=== PATIENT | male | born 1975 | race Caucasian/White ===

== ENCOUNTER 2018-11-02 15:50 | Observation (INO) | payer OTHER, SELFPAY ==
[2018-11-02] VITALS (10 sets, daily range): BP systolic 104–155; BP diastolic 63–97; PULSE 58–74; RESP 16–18; TEMP 36.6–37.2; O2SAT 96–99; BMI 30.7; BMI 31.1
--- NOTE | 2018-11-02 16:12 | EKG12_ITS ---
Test Reason : CP Blood Pressure : / mmHG Vent. Rate : 062 BPM Atrial Rate : 062 BPM P-R Int : 172 ms QRS Dur : 094 ms QT Int : 386 ms P-R-T Axes : 026 060 007 degrees QTc Int : 391 ms Normal sinus rhythm Normal ECG Confirmed by KANE PERALES, OBED ([id number]), features editor LUIS MANUEL MARROQUIN ([id number]) on 11/07/2018 1:03:07 PM Referred By: Sam Larsen Confirmed By:OBED MIDDLETON MD
--- NOTE | 2018-11-02 16:15 | RAD_ITS ---
STUDY: X-RAY CHEST REASON FOR EXAM: Male, 43 years old. Chest pain TECHNIQUE: Portable upright chest COMPARISON: 02/03/2010 FINDINGS: The lungs are clear and expanded. Normal cardiomediastinal silhouette, wilfred and pleural margins. No acute osseous or upper abdominal process. RAD/Chest 1 View (Portable) IMPRESSION: No acute cardiopulmonary process. Electronically Signed: Miguel Linares MD at 16:59 EST Tel , Service support ,
[2018-11-02 16:38] LABS: Absolute Lymphocyte Count 1.45 X10^3/ul (0.83-4.51); Absolute Neutrophil Count 2.6 X10^3/uL (2.0-7.7); Basophil# 0.06 X10^3/uL; Basophil% 1.3 % (0-1); Eosinophil# 0.13 X10^3/uL; Eosinophils% 2.8 % (0-5); Hematocrit 47.6 % (40-54); Hemoglobin 16.2 g/dl (13.0-16.5); Lymphocyte # 1.45 X10^3/ul (4.0); Lymphocyte % 30.8 % (19-41); Mean Corpuscular Hgb 30.6 pg (27.0-32.0); Mean Corpuscular Volume 89.8 fL (80-94); Mean Platelet Vol. 10.3 fl (6.2-12.0); Monocyte# 0.49 X10^3/uL; Monocyte% 10.4 % (0-10); Neutrophil # 2.57 X10^3/uL (2.7-7.7); Neutrophil % 54.5 % (47-70); POSITIVE COUNT NO; POSITIVE DIFFERENTIAL NO; POSITIVE MORPHOLOGY NO; Platelet Count 218 K/mm3 (150-450); RBC Distribution Width CV 12.6 % (11.6-14.6); RBC Distribution Width SD 41.2 fl (35.1-43.9); White Blood Count 4.7 K/mm3 (4.4-11.0)
--- NOTE | 2018-11-02 16:50 | ED.VISSUMM ---
- ER Visit Summary Date of Service: 11/02/18 Chief Complaint: [Chest pain] History of Present Illness: The patient is a 43 M [presents to the emergency department complaint of chest discomfort that started initially last night. Patient states pain initially was intermittent. Patient describes a pressure/tightness in his left chest and underneath his left armpit. Patient states the pain would radiate down his left arm and behind his scapula. Patient denies any shortness of breath or diaphoresis. Patient states that when he woke up this morning he had some discomfort and went to work and discomfort continued. Rated the pain a 2 or 3 out of 10. Patient is never had symptoms like this before. Patient does have a history of high cholesterol. No family history of heart disease. Patient is not a smoker. He denies recent travel or surgery.] Physical Examination: [HEENT-PERRLA, EOMI. Cranial nerves II through XII grossly intact. TMs clear. Mucous membranes moist. No adenopathy. Cardiovascular-regular rate and rhythm without murmur or ectopy Lungs-clear to auscultation, chest wall stable without crepitus or subcu emphysema Abdomen-normoactive bowel sounds, soft, nontender, no rebound or rigidity, no peritoneal signs. Extremities-intact ?4, normal range of motion, normal pulses, atraumatic] Test Results: [EKG obtained on arrival shows sinus rhythm with a ventricular rate of 62 bpm with some nonspecific ST changes noted with the flipped T wave in lead III and flattened T wave in aVF there is no old EKGs available for comparison. CBC with differential obtained showed a white count of 4.7, hemoglobin 16, hematocrit 48, platelets 218. Chemistries unremarkable. Troponin is less than 0.015. Chest x-ray showed nothing acute.] Emergency Department Course and Treatment: [Was ordered aspirin and was ordered nitroglycerin] Treatment Plan: [Admit] Disposition: [Admit for further workup and evaluation] Impression: [Chest pain-rule out acute coronary syndrome] This note was generated with [employer] dictation software. It may contain incorrect words, spelling, and punctuation that were not noted in review of the chart prior to signing ED Disposition - Plan for ED Patient: Chief Complaint: Chest Pain Referrals: Anna Wu MD [Primary Care Provider] -
[2018-11-02 16:55] LABS: Anion Gap 6 (5-15); BUN 19 mg/dL (7-18); BUN/Creat Ratio 17.9 RATIO (10-20); Calcium,Total 9.3 mg/dL (8.5-10.1); Chloride 103 mmol/L (98-107); Creatinine, Serum 1.06 mg/dL (0.70-1.30); EST Glomerular Filtration Rate 81 mL/min (>60); Est Glom Filt Rate - Afr Amer 98 mL/min (>60); Estimated Creatinine Clearance 89.86 ml/min; Glucose 107 mg/dL (74-106); Potassium 3.8 mmol/L (3.5-5.1); Sodium Level 138 mmol/L (136-145)
[2018-11-02] MEDS: 0.9% Normal Saline 1,000 ML 150 ML IV (17:05)
[2018-11-02] MEDS: Aspirin 81 MG TAB.CHEW 324 MG PO (17:06)
--- NOTE | 2018-11-02 17:31 | PCM.HP.STD ---
History of Present Illness Date of Admission: 11/02/18 Chief Complaint: Chest pain. The patient is a 43 year old M without significant past medical history presented to the emergency room because of chest pain. Her symptoms started yesterday evening when he was standing at the [place], started having retrosternal chest pain, burning aching pain, 3 out of 10 severity, constant since yesterday evening, radiates to his left shoulder blade, no associated symptoms and without aggravating or relieving factors. He mentioned that the pain continued this morning when he went to work and got worse this afternoon. He denied associated shortness of breath, palpitation, dizziness, lightheadedness, syncope or presyncope. He denied nausea, vomiting or heartburn. He denied family history of premature CAD. In the emergency department, his vital signs were stable. His routine blood work was unremarkable. EKG revealed normal sinus rhythm, normal QRS, normal QTC and without evidence of acute ischemic changes. His troponin was negative. Chest x-ray showed no acute findings. He is being admitted for chest pain for evaluation. Past Medical History Allergies No Known Allergies Allergy (Verified 11/02/18 15:52) Home Medications: Ambulatory Orders Medication Instructions Recorded Omeprazole Magnesium [Prilosec Otc] 20 mg PO DAILY 11/02/18 Surgical History: - - Surgery for carpal tunnel syndrome. Psychiatric History: No pertinent psych hx Lives: Spouse/ Significant Other Smoking Status: Former smoker Alcohol: Heavy - He drinks wine almost daily. Drugs: None - *Family History Maternal History Items: Hypertension, - - No family history of premature CAD. Paternal History Items: No pertinent history Review of Systems Constitutional: Denies: Anorexia, Chills, Fever, Weakness Eyes: Denies: Blurred vision, Double vision, Drainage, Redness HEENT: Denies: Difficulty Hearing, Ear Pain, Eye Pain, Nasal Congestion, Sore Throat Cardiovascular: Reports: Chest Pain, Chest Pressure. Denies: Heaviness, Light Headedness, Palpitations, Syncope Respiratory: Denies: Cough, Pleuritic Pain, Shortness of Breath, Sputum production, Wheezing Gastrointestinal: Denies: Abdominal Pain, Constipation, Diarrhea, Dyspepsia, Nausea, Vomiting Genitourinary: Denies: Dysuria, Frequency, Hematuria Musculoskeletal: Denies: Arm Pain, Back Pain, Foot Pain Skin: Denies: Dryness, Rash Neurological: Denies: Balance problems, Double vision, Change in Speech, Slurred speech, Confusion, Headaches, Incoordination, Numbness Psychiatric: Denies: Anxiety, Depression Endocrine: Denies: Change in Body Habitus, Polydipsia VTE Information - Inpt Only VTE Present on Admission: No VTE Mechan Device Prophylaxis: None VTE Pharm Prophylaxis ordered?: No - Physical Exam General: Alert, Oriented x3, Cooperative, No apparent distress HEENT: Atraumatic, PERRLA, EOMI, Normocephalic Oral: Moist Mucosa, No Gingival or Mucosal Lesions/ Ulcerations Neck: Supple, No JVD, Negative Carotid Bruits, Trachea Midline, Thyroid Normal Size and Texture Lungs: Clear to auscultation, Normal air movement, No rhonchi, No wheeze, No rales Cardiovascular: Regular rate, Regular Rhythm, Normal S1, Normal S2, No murmurs Abdomen: Bowel Sounds Present, Soft, Non Tender, Non-Distended, No Hepato-splenomegaly Extremities: No clubbing, No cyanosis, No edema Skin: No rashes, No breakdown Lymphatic: No Cervical, Supraclavicular, or Inguinal Adenopathy Neurological: Cranial nerves II-XII grossly intact, Motor Exam 5/5 strength throughout Psych/Mental Status: Normal Affect, Appropriate, Alert and oriented to time, place, person, mood and affect Vital Signs Temp Pulse Resp BP Pulse Ox 98.9 F 74 17 123/63 H 97 11/02/18 15:51 11/02/18 17:14 11/02/18 17:10 11/02/18 17:14 11/02/18 17:10 Oxygen Flow Rate (L/min) 2 Oxygen Delivery Method Nasal Cannula Weight: 208 lb Body Mass Index (BMI) 30.7 Laboratory Tests Past 24 Hrs 11/02/18 11/02/18 16:05 16:12 WBC 4.7 RBC 5.30 Hgb 16.2 Hct 47.6 MCV 89.8 MCH 30.6 MCHC 34.0 RDW 12.6 RDW Differential 41.2 Plt Count 218 MPV 10.3 Immature Gran % (Auto) 0.200 Neut % (Auto) 54.5 Lymph % (Auto) 30.8 [place] % (Auto) 10.4 H Eos % (Auto) 2.8 Baso % (Auto) 1.3 H Absolute Neuts (auto) 2.6 Absolute Lymphs (auto) 1.45 Total Counted Not Reportable Sodium 138 Potassium 3.8 Chloride 103 Carbon Dioxide 29.0 Anion Gap 6 BUN 19 H Creatinine 1.06 Estim Creat Clear Calc 89.86 Est GFR (MDRD) Af Amer 98 Est GFR (MDRD) Non-Af 81 BUN/Creatinine Ratio 17.9 Glucose 107 H Calcium 9.3 Troponin I < 0.015 Clinical Impression(s) from Imaging Studies Chest X-Ray 11/02/18 16:15 IMPRESSION: No acute cardiopulmonary process. Electronically Signed: Miguel Linares MD at 16:59 EST Tel , Service support , Assessment/Plan This is a 43 years old male patient presented to the emergency room because of chest pain and he is being admitted for evaluation. #1 chest pain: With no significant past medical history. No family history of premature CAD. Patient is an ex-smoker. Initial EKG revealed no acute ischemic changes. Troponin is negative. Chest x-ray showed no acute findings. Plan: Admit to PCU for observation, cardiac monitoring, serial cardiac enzymes, repeat EKG tomorrow morning, Tylenol as needed, IV antiemetics as needed, nitroglycerin as needed for chest pain, nuclear stress test tomorrow morning if cardiac enzymes are negative. #2 DVT prophylaxis: Low-risk patient, no prophylaxis indicated. This note was generated with [employer] software. It may contain incorrect words, spelling, and punctuation that were not noted in checking the note before signing. Code Visit OBSV E&M: 98128 Initial observation care L2
--- NOTE | 2018-11-02 17:35 | HP.PCM_ITS ---
History of Present Illness Date of Admission: 11/02/18 Chief Complaint: Chest pain. The patient is a 43 year old M without significant past medical history presented to the emergency room because of chest pain. Her symptoms started yesterday evening when he was standing at [place], started having retrosternal chest pain, burning aching pain, 3 out of 10 severity, constant since yesterday evening, radiates to his left shoulder blade, no associated symptoms and without aggravating or relieving factors. He mentioned that the pain continued this morning when he went to work and got worse this afternoon. He denied associated shortness of breath, palpitation, dizziness, lightheadedness, syncope or presy ncope. He denied nausea, vomiting or heartburn. He denied family history of premature CAD. In the emergency department, his vital signs were stable. His routine blood work was unremarkable. EKG revealed normal sinus rhythm, normal QRS, normal QTC and without evidence of acute ischemic changes. His troponin was negative. Chest x-ray showed no acute findings. He is being admitted for chest pain for evaluation. Past Medical History Allergies No Known Allergies Allergy (Verified 11/02/18 15:52) Home Medications: Ambulatory Orders Medication Instructions Recorded Omeprazole Magnesium [Prilosec Otc] 20 mg PO DAILY 11/02/18 Surgical History: - - Surgery for carpal tunnel syndrome. Psychiatric History: No pertinent psych hx Lives: Spouse/ Significant Other Smoking Status: Former smoker Alcohol: Heavy - He drinks wine almost daily. Drugs: None - *Family History Maternal History Items: Hypertension, - - No family history of premature CAD. Paternal History Items: No pertinent history Review of Systems Constitutional: Denies: Anorexia, Chills, Fever, Weakness Eyes: Denies: Blurred vision, Double vision, Drainage, Redness HEENT: Denies: Difficulty Hearing, Ear Pain, Eye Pain, Nasal Congestion, Sore Throat Cardiovascular: Reports: Chest Pain, Chest Pressure. Denies: Heaviness, Light Headedness, Palpitations, Syncope Respiratory: Denies: Cough, Pleuritic Pain, Shortness of Breath, Sputum production, Wheezing Gastrointestinal: Denies: Abdominal Pain, Constipation, Diarrhea, Dyspepsia, Nausea, Vomiting Genitourinary: Denies: Dysuria, Frequency, Hematuria Musculoskeletal: Denies: Arm Pain, Back Pain, Foot Pain Skin: Denies: Dryness, Rash Neurological: Denies: Balance problems, Double vision, Change in Speech, Slurred speech, Confusion, Headaches, Incoordination, Numbness Psychiatric: Denies: Anxiety, Depression Endocrine: Denies: Change in Body Habitus, Polydipsia VTE Information - Inpt Only VTE Present on Admission: No VTE Mechan Device Prophylaxis: None VTE Pharm Prophylaxis ordered?: No - Physical Exam General: Alert, Oriented x3, Cooperative, No apparent distress HEENT: Atraumatic, PERRLA, EOMI, Normocephalic Oral: Moist Mucosa, No Gingival or Mucosal Lesions/ Ulcerations Neck: Supple, No JVD, Negative Carotid Bruits, Trachea Midline, Thyroid Normal Size and Texture Lungs: Clear to auscultation, Normal air movement, No rhonchi, No wheeze, No rales Cardiovascular: Regular rate, Regular Rhythm, Normal S1, Normal S2, No murmurs Abdomen: Bowel Sounds Present, Soft, Non Tender, Non-Distended, No Hepato- splenomegaly Extremities: No clubbing, No cyanosis, No edema Skin: No rashes, No breakdown Lymphatic: No Cervical, Supraclavicular, or Inguinal Adenopathy Neurological: Cranial nerves II-XII grossly intact, Motor Exam 5/5 strength thro ughout Psych/Mental Status: Normal Affect, Appropriate, Alert and oriented to time, place, person, mood and affect Vital Signs Temp Pulse Resp BP Pulse Ox 98.9 F 74 17 123/63 H 97 11/02/18 15:51 11/02/18 17:14 11/02/18 17:10 11/02/18 17:14 11/02/18 17:10 Oxygen Flow Rate (L/min) 2 Oxygen Delivery Method Nasal Cannula Weight: 208 lb Body Mass Index (BMI) 30.7 Laboratory Tests Past 24 Hrs 11/02/18 11/02/18 16:05 16:12 WBC 4.7 RBC 5.30 Hgb 16.2 Hct 47.6 MCV 89.8 MCH 30.6 MCHC 34.0 RDW 12.6 RDW Differential 41.2 Plt Count 218 MPV 10.3 Immature Gran % (Auto) 0.200 Neut % (Auto) 54.5 Lymph % (Auto) 30.8 [place] % (Auto) 10.4 H Eos % (Auto) 2.8 Baso % (Auto) 1.3 H Absolute Neuts (auto) 2.6 Absolute Lymphs (auto) 1.45 Total Counted Not Reportable Sodium 138 Potassium 3.8 Chloride 103 Carbon Dioxide 29.0 Anion Gap 6 BUN 19 H Creatinine 1.06 Estim Creat Clear Calc 89.86 Est GFR (MDRD) Af Amer 98 Est GFR (MDRD) Non-Af 81 BUN/Creatinine Ratio 17.9 Glucose 107 H Calcium 9.3 Troponin I < 0.015 Clinical Impression(s) from Imaging Studies Chest X-Ray 11/02/18 16:15 IMPRESSION: No acute cardiopulmonary process. Electronically Signed: Miguel Linares MD at 16:59 EST Tel , Service support , Assessment/Plan This is a 43 years old male patient presented to the emergency room because of chest pain and he is being admitted for evaluation. #1 chest pain: With no significant past medical history. No family history of premature CAD. Patient is an ex-smoker. Initial EKG revealed no acute ischemic changes. Troponin is negative. Chest x-ray showed no acute findings. Plan: Admit to PCU for observation, cardiac monitoring, serial cardiac enzymes, repeat EKG tomorrow morning, Tylenol as needed, IV antiemetics as needed, nitroglycerin as needed for chest pain, nuclear stress test tomorrow morning if cardiac enzymes are negative. #2 DVT prophylaxis: Low-risk patient, no prophylaxis indicated. This note was generated with [employer] software. It may contain incorrect words, spelling, and punctuation that were not noted in checking the note before signing. Code Visit OBSV E&M: 60236 Initial observation care L2
[2018-11-02] MEDS: Nitroglycerin Oint 1 INCH PACKET TRANSDERM. (17:46)
--- NOTE | 2018-11-02 18:24 | EKG12_ITS ---
Test Reason : CP ADMIT Blood Pressure : / mmHG Vent. Rate : 053 BPM Atrial Rate : 053 BPM P-R Int : 182 ms QRS Dur : 090 ms QT Int : 392 ms P-R-T Axes : 049 050 026 degrees QTc Int : 367 ms Sinus bradycardia Otherwise normal ECG Confirmed by KANE PERALES, OBED ([id number]), news copy editor LUIS MANUEL MARROQUIN ([id number]) on 11/07/2018 1:47:02 PM Referred By: Sam Larsen Confirmed By:OBED MIDDLETON MD
[2018-11-02] MEDS: Acetaminophen 325 MG Tablet 650 MG PO (21:00)
[2018-11-03 00:22] VITALS: BP 104/65; PULSE 62; RESP 16; TEMP 36.3; O2SAT 95
[2018-11-03 03:02] VITALS: PULSE 60
[2018-11-03 05:04] LABS: Hematocrit 44.9 % (40-54); Hemoglobin 15.2 g/dl (13.0-16.5); Mean Corp Hgb Conc 33.9 g/gl (32-36); Mean Corpuscular Hgb 30.5 pg (27.0-32.0); Mean Corpuscular Volume 90.2 fL (80-94); Mean Platelet Vol. 10.5 fl (6.2-12.0); Platelet Count 217 K/mm3 (150-450); RBC Distribution Width CV 12.5 % (11.6-14.6); RBC Distribution Width SD 40.9 fl (35.1-43.9); Red Blood Count 4.98 M/mm3 (4.6-6.2); White Blood Count 4.8 K/mm3 (4.4-11.0)
[2018-11-03 05:11] LABS: Scan Indicated on CBC? Y/N NO
[2018-11-03 05:13] LABS: Anion Gap 8 (5-15); BUN 21 mg/dL (7-18); BUN/Creat Ratio 20.6 RATIO (10-20); Calcium,Total 8.6 mg/dL (8.5-10.1); Chloride 107 mmol/L (98-107); Creatinine, Serum 1.02 mg/dL (0.70-1.30); EST Glomerular Filtration Rate 85 mL/min (>60); Est Glom Filt Rate - Afr Amer 102 mL/min (>60); Estimated Creatinine Clearance 93.38 ml/min; Glucose 100 mg/dL (74-106); Sodium Level 142 mmol/L (136-145)
[2018-11-03 05:17] LABS: Prothrombin Time (Protime)PT. 13.5 SECONDS (11.7-14.9)
[2018-11-03 05:18] LABS: Partial Thromboplast Time 27.4 Seconds (24.1-36.2)
--- NOTE | 2018-11-03 05:55 | EKG12_ITS ---
Test Reason : AM EKG Blood Pressure : / mmHG Vent. Rate : 054 BPM Atrial Rate : 054 BPM P-R Int : 204 ms QRS Dur : 094 ms QT Int : 400 ms P-R-T Axes : 005 059 032 degrees QTc Int : 379 ms Sinus bradycardia Otherwise normal ECG Confirmed by KANE PERALES, OBED ([id number]), editor publications LUIS MANUEL MARROQUIN ([id number]) on 11/07/2018 1:45:56 PM Referred By: Sam Larsen Confirmed By:OBED MIDDLETON MD
[2018-11-03 05:56] VITALS: BP 111/68; PULSE 54; RESP 16; TEMP 36.1; O2SAT 95
--- NOTE | 2018-11-03 06:25 | NURSING ---
Patient was taken down to stress test by OCCUPATIONAL THERAPY DIRECTOR via wheelchair.
--- NOTE | 2018-11-03 06:58 | NURSING ---
Reviewed charting of Glendy Cerna and agree with charting.
[2018-11-03] MEDS: Pantoprazole Sodium 20 MG Tablet PO (08:35)
[2018-11-03 09:00] VITALS: PULSE 65
--- NOTE | 2018-11-03 10:00 | STRESSREP ---
Stress Test Report Date: 11/03/2018 Procedure: Exercise tolerance test/stress nuclear imaging study Indications: Chest pain Consent: Per the patient Procedure: The patient exercised on a Frankie protocol for 10 minutes completing Stage III and 1 minute of Stage IV achieving a peak heart rate of 173 beats per minute (97% predicted maximal heart rate) with a peak blood pressure 190/92 mmHg and a peak MET capacity of approximately 11 METS. The patient demonstrated a baseline ECG with normal sinus rhythm. The peak exercise ECG demonstrated no obvious ECG changes. There were no cardiac dysrhythmias pretest, during exercise, or recovery. The functional capacity was considered good. The patient had no complaint of chest discomfort during exercise or recovery. The examination was discontinued secondary to leg fatigue. Impression: 1. Technically adequate (percent predicted maximal heart rate greater than 85%) exercise tolerance test 2. Peak exercise ECG with no obvious ECG changes 3. Nuclear images pending Myocardial perfusion imaging study: Technique: The patient was injected with 14.3 mci of technetium-99m Cardiolite and subsequently rest SPECT Cardiolite nuclear imaging was obtained in the horizontal long, vertical long, and short axis views. The patient exercised on a Frankie protocol for 10 minutes completing Stage III and 1 minute of Stage IV achieving a peak heart rate of 173 beats per minute (97% predicted maximal heart rate) with a peak blood pressure 190/92 mmHg and a peak MET capacity of approximately 11 METS. The patient was injected with 43.9 mci of technetium-99m Cardiolite and subsequently stress SPECT Cardiolite nuclear imaging was obtained in the horizontal long, vertical long, and short axis views. A gated Cardiolite study at peak stress was obtained. Interpretation: Rest and stress SPECT Cardiolite nuclear imaging demonstrate status post realignment, normalization, and attenuation correction, the appearance of relative uniform tracer uptake and myocardial perfusion appearing within normal limits. There is end systolic thickening and brightening. The gated Cardiolite study demonstrates myocardial thickening and inward wall motion. The reported LVEF is 69%. Impression: 1. Rest and stress SPECT Cardiolite nuclear imaging demonstrate relative uniform tracer uptake and myocardial perfusion appearing within normal limits. 2. The gated Cardiolite study reports an LVEF of 69%. This note was generated using a voice recognition system and there may be incorrect words, spelling or punctuation that were not noted when reviewing the office note prior to saving.
[2018-11-03 10:39] VITALS: BP 119/72; PULSE 62; RESP 14; TEMP 36.1; O2SAT 97
--- NOTE | 2018-11-03 10:57 | DCINST_ITS ---
- Discharge Diagnoses Reason(s) for Visit for Discharge Instructions: Chest pain You will use the following diet at home:: Regular Your food should be the consistency of: Regular Your liquids should be the consistency of: Regular/Thin Discharge Activity: Return to Normal Activity Additional Instructions: Continue to take Prilosec 20mg daily. Recommend you increase it to twice a day for the next 2 weeks and then once daily again. Continue to remain active Allergies/Adverse Reactions: Allergies No Known Allergies Allergy (Verified 11/02/18 15:52) Medications to take at Discharge Omeprazole Magnesium [Prilosec Otc] 20 mg PO DAILY 11/02/18 Primary Care Physician: Anna Wu MD [STAFF PHYSICIAN] - Please follow up with your Primary Care Physician in: within 1-2 weeks Test Results: Test results from this visit will be discussed in further detail at your follow- up appointment, if applicable. Proposed Discharge Date: 11/03/18
[2018-11-03 11:00] VITALS: PULSE 69
--- NOTE | 2018-11-03 11:05 | DS.PCM_ITS ---
Discharge Date and Diagnosis Date of Admission: 11/02/18 Date of Discharge: 11/03/18 - Primary Discharge Diagnosis Chest pain Hospital Course and Treatment Imaging Results: 11/03/18 05:55 Nuclear Stress Test - Treadmil [NM] Routine Clinical Impression(s) from Imaging Studies Chest X-Ray 11/02/18 16:15 IMPRESSION: No acute cardiopulmonary process. Electronically Signed: Miguel Linares MD at 16:59 EST Tel , Service support , None Operations: None Procedures: 2-D Echocardiogram Summary of Care Provided: The patient is a 43 year old M with PMHx of GERD who was admitted with chest pain. His symptoms started a day prior to admission. He describes having retrosternal chest pain, burning aching pain, 3 out of 10 severity, constant since yesterday evening, radiates to his left shoulder blade, no associated symptoms and without aggravating or relieving factors. Pain persisted the next day. He denied associated shortness of breath, palpitation, dizziness, lightheadedness, syncope or presyncope. He was admitted to a monitored bed. No acute events on telemetry were seen. His troponins were negative. He underwent a nuclear stress test that was negative. He was advised to take oral PPI BID for at least 2 weeks and follow-up with his PCP. Subjective: On the day of discharge, he denied any complains. He felt well. Denied chest pain, dizziness or SOB. - Physical Exam General: Alert, Oriented x3, Cooperative, No apparent distress HEENT: Atraumatic, PERRLA, EOMI, Normocephalic Oral: Moist Mucosa Neck: Supple, No JVD, Negative Carotid Bruits Lungs: Clear to auscultation, Normal air movement Cardiovascular: Regular rate, Regular Rhythm, Normal S1, Normal S2, No murmurs Abdomen: Bowel Sounds Present, Soft, Non Tender, Non-Distended, No Hepato- splenomegaly Extremities: No edema Skin: No rashes, No breakdown Musculoskeletal: No Tenderness to Palpation of Joints or Extremities Lymphatic: No Cervical, Supraclavicular, or Inguinal Adenopathy Neurological: Cranial nerves II-XII grossly intact, Neuro grossly intact Psych/Mental Status: Normal Affect, Appropriate Vital Signs Temp Pulse Resp BP Pulse Ox 97 F L 62 14 119/72 97 11/03/18 10:39 11/03/18 10:39 11/03/18 10:39 11/03/18 10:39 11/03/18 10:39 Oxygen Flow Rate (L/min) 2 Oxygen Delivery Method Room Air Weight: 95.6 kg Body Mass Index (BMI) 31.1 Intake and Output for Last 24 Hours 11/01/18 11/02/18 11/03/18 23:59 23:59 23:59 Intake Total 766 / 766 Balance 766 / 766 Laboratory Tests Past 24 Hrs 11/02/18 11/02/18 11/02/18 16:05 16:12 18:48 WBC 4.7 RBC 5.30 Hgb 16.2 Hct 47.6 MCV 89.8 MCH 30.6 MCHC 34.0 RDW 12.6 RDW Differential 41.2 Plt Count 218 MPV 10.3 Immature Gran % (Auto) 0.200 Neut % (Auto) 54.5 Lymph % (Auto) 30.8 Berg[place] % (Auto) 10.4 H Eos % (Auto) 2.8 Baso % (Auto) 1.3 H Absolute Neuts (auto) 2.6 Absolute Lymphs (auto) 1.45 Total Counted Not Reportable PT INR APTT Sodium 138 Potassium 3.8 Chloride 103 Carbon Dioxide 29.0 Anion Gap 6 BUN 19 H Creatinine 1.06 Estim Creat Clear Calc 89.86 Est GFR (MDRD) Af Amer 98 Est GFR (MDRD) Non-Af 81 BUN/Creatinine Ratio 17.9 Glucose 107 H Calcium 9.3 Troponin I < 0.015 < 0.015 11/02/18 11/03/18 11/03/18 22:12 04:56 04:56 WBC 4.8 RBC 4.98 Hgb 15.2 Hct 44.9 MCV 90.2 MCH 30.5 MCHC 33.9 RDW 12.5 RDW Differential 40.9 Plt Count 217 MPV 10.5 Immature Gran % (Auto) Neut % (Auto) Lymph % (Auto) Bergen % (Auto) Eos % (Auto) Baso % (Auto) Absolute Neuts (auto) Absolute Lymphs (auto) Total Counted PT INR APTT Sodium 142 Potassium 4.0 Chloride 107 Carbon Dioxide 27.0 Anion Gap 8 BUN 21 H Creatinine 1.02 Estim Creat Clear Calc 93.38 Est GFR (MDRD) Af Amer 102 Est GFR (MDRD) Non-Af 85 BUN/Creatinine Ratio 20.6 H Glucose 100 Calcium 8.6 Troponin I < 0.015 11/03/18 04:56 WBC RBC Hgb Hct MCV MCH MCHC RDW RDW Differential Plt Count MPV Immature Gran % (Auto) Neut % (Auto) Lymph % (Auto) Bergen % (Auto) Eos % (Auto) Baso % (Auto) Absolute Neuts (auto) Absolute Lymphs (auto) Total Counted PT 13.5 INR 1.0 APTT 27.4 Sodium Potassium Chloride Carbon Dioxide Anion Gap BUN Creatinine Estim Creat Clear Calc Est GFR (MDRD) Af Amer Est GFR (MDRD) Non-Af BUN/Creatinine Ratio Glucose Calcium Troponin I Discharge Diet: No Restrictions Discharge Activity: Return to Normal Activity Home Medications: Medications to take at Discharge Omeprazole Magnesium [Prilosec Otc] 20 mg PO DAILY 11/02/18 Primary Care Physician: Anna Wu MD [STAFF PHYSICIAN] - Please follow up with your Primary Care Physician in: within 1-2 weeks Disposition: Home Minutes spent on discharge:: 40 Patient Condition:: Stable Medical Necessity - Tobacco Use Smoking Status: Former smoker Tobacco Use: Non-smoker Meaningful Use Info Meaningful Use Diagnoses (Choose all that apply): None applicable Code Visit OBSV E&M: 19805 Observation care discharge
== END 2018-11-03 10:56 | disposition home or self-care (01) ==
LOC: ED 17:17 → PCU 17:33
PROVIDERS: Admitting Provider Hospitalist; Emergency Provider Emergency Medicine; Family Provider Internal Medicine; PCP Internal Medicine; Referring Provider Hospitalist; Visit Provider Internal Medicine
DX: R07.89 Other chest pain (principal); E78.00 Pure hypercholesterolemia, unspecified; Z87.891 Personal history of nicotine dependence; K21.9 Gastro-esophageal reflux disease without esophagitis; Z79.899 Other long term (current) drug therapy
CPT/HCPCS: 36415; 71045; 78452; 80048; 84484; 85025; 85027; 85610; 85730; 93005; 93017; 96360; 96361; 99218; 99283; A9500; A4216; G0378

== ENCOUNTER → 2019-06-09 10:36 | Outpatient (CLI) | payer OTHER, SELFPAY ==
[2018-12-13 11:43] VITALS: BMI 31.1
[2019-06-09 11:23] LABS: Cholesterol 324 mg/dL (200); High Density Lipoprotein 53 mg/dL; Triglycerides 126 mg/dL; Very Low Density Lipoprotein 25 mg/dL (5-40)
== END ==
PROVIDERS: Family Provider Internal Medicine; PCP Internal Medicine; Referring Provider Internal Medicine; Visit Provider Internal Medicine
DX: E78.5 Hyperlipidemia, unspecified (principal)
CPT/HCPCS: 36415; 80061

== ENCOUNTER → 2019-09-08 11:42 | Outpatient (CLI) | payer OTHER, SELFPAY ==
[2019-06-13 10:32] VITALS: BMI 31.1
[2019-09-08 12:33] LABS: Hematocrit 47.8 % (40-54); Hemoglobin 15.7 g/dL (13.0-16.5); Mean Corp Hgb Conc 32.8 g/dL (32-36); Mean Corpuscular Volume 91.4 fL (80-94); Mean Platelet Vol. 10.5 fl (6.2-12.0); Platelet Count 241 K/mm3 (150-450); RBC Distribution Width CV 12.1 % (11.6-14.6); RBC Distribution Width SD 40.9 fl (35.1-43.9); Red Blood Count 5.23 M/mm3 (4.6-6.2)
[2019-09-08 13:17] LABS: ALB/GLOB Ratio 1.2 RATIO (0.9-2.4); AST(SGOT) 26 U/L (15-37); Alanine Aminotransfer ALT/SGPT 48 U/L (16-61); Albumin, Serum 4.2 g/dL (3.2-5.0); Alkaline Phosphatase 46 U/L (45-117); Anion Gap 9 (5-15); BUN 16 mg/dL (7-18); BUN/Creat Ratio 15.7 RATIO (10-20); Calcium,Total 9.1 mg/dL (8.5-10.1); Chloride 100 mmol/L (98-107); Cholesterol 201 mg/dL (200); Creatinine, Serum 1.02 mg/dL (0.70-1.30); EST Glomerular Filtration Rate 84 mL/min (>60); Est Glom Filt Rate - Afr Amer 102 mL/min (>60); Globulin 3.6 g/dL (2.2-4.2); Glucose 103 mg/dL (74-106); High Density Lipoprotein 65 mg/dL; Potassium 4.2 mmol/L (3.5-5.1); Protein, Total 7.8 g/dL (6.4-8.2); Sodium Level 138 mmol/L (136-145); Thyroid Stim Hormone (TSH) 4.33 uIU/mL (0.358-3.74); Triglycerides 54 mg/dL; Very Low Density Lipoprotein 11 mg/dL (5-40)
[2019-09-08 14:54] LABS: T4 Free Direct 0.73 ng/dL (0.76-1.46)
== END ==
PROVIDERS: Family Provider Internal Medicine; PCP Internal Medicine; Visit Provider Nurse Practitioner Family
DX: E78.5 Hyperlipidemia, unspecified (principal); K21.9 Gastro-esophageal reflux disease without esophagitis; R79.89 Other specified abnormal findings of blood chemistry
CPT/HCPCS: 36415; 80053; 80061; 84439; 84443; 85027

== ENCOUNTER → 2019-10-30 10:03 | Outpatient (CLI) | payer OTHER, SELFPAY ==
[2019-09-26 10:20] VITALS: BMI 33.2
[2019-10-30 13:28] LABS: T4 Free Direct 0.88 ng/dL (0.76-1.46); Thyroid Stim Hormone (TSH) 3.74 uIU/mL (0.358-3.74)
== END ==
PROVIDERS: Family Provider Internal Medicine; PCP Internal Medicine; Referring Provider Nurse Practitioner Family; Visit Provider Nurse Practitioner Family
DX: E03.9 Hypothyroidism, unspecified (principal)
CPT/HCPCS: 36415; 84439; 84443

== ENCOUNTER → 2020-01-10 09:27 | Outpatient (CLI) | payer OTHER, SELFPAY ==
[2019-09-26 10:20] VITALS: BMI 33.2
[2019-11-20 11:35] VITALS: BMI 34.1
--- NOTE | 2020-01-10 09:32 | US_ITS ---
STUDY: ABDOMINAL ULTRASOUND REASON FOR EXAM: Male, 44 years old. ABD PAIN TECHNIQUE: Transabdominal ultrasound was performed with real-time and static haq scale imaging. TECHNICAL QUALITY: Adequate. COMPARISON: None. FINDINGS: Aorta: Visualized portions of abdominal aorta are normal in diameter. IVC: Visualized portions appear patent. Pancreas: Visualized portions of pancreas are unremarkable. Liver: Measures 14.8 cm. Liver shows increased echogenicity. No liver masses identified. Gallbladder: No stones or wall thickening. Negative sonographic West''s sign. Common bile duct: Measures 4.4 mm. No intraductal stones identified. Right kidney: Measures 10.6 cm in length. Normal contour. No cysts. No masses, stones, or hydronephrosis identified. Renal cortical thickness appears normal. Left kidney: Measures 10.8 cm in length. Normal contour. No cysts. No masses, stones, or hydronephrosis identified. Renal cortical thickness appears normal. Spleen: Measures 11.0 cm. It shows homogeneous echotexture. Additional findings: None of significance. US/Abdomen Complete IMPRESSION: Increased hepatic echogenicity may indicate steatosis of the appropriate clinical setting. Otherwise unremarkable abdominal sonogram. Electronically Signed: Brett Doshi, at 18:09 EST Tel , Service support ,
== END ==
PROVIDERS: Family Provider Internal Medicine; PCP Internal Medicine; Referring Provider Nurse Practitioner Family; Visit Provider Nurse Practitioner Family
DX: R10.11 Right upper quadrant pain (principal)
CPT/HCPCS: 76700

== ENCOUNTER → 2021-04-02 09:33 | Outpatient (CLI) | payer OTHER, SELFPAY ==
[2021-04-02 09:19] VITALS: BMI 32.8
[2021-04-02 12:12] LABS: Absolute Lymphocyte Count 1.03 X10^3/uL (0.83-4.51); Absolute Neutrophil Count 2.3 X10^3/uL (2.0-7.7); Basophil# 0.04 X10^3/uL; Eosinophil# 0.12 X10^3/uL; Eosinophils% 3.1 % (0-5); Hematocrit 48.2 % (40-54); Hemoglobin 15.9 g/dL (13.0-16.5); Lymphocyte # 1.03 X10^3/ul (0.83-4.51); Lymphocyte % 26.6 % (19-41); Mean Corpuscular Hgb 30.1 pg (27.0-32.0); Mean Corpuscular Volume 91.1 fL (80-94); Mean Platelet Vol. 11.1 fl (6.2-12.0); Monocyte% 10.3 % (0-10); NRBC Flagged by Analyzer 0 % (0-5); Neutrophil # 2.27 X10^3/uL (2.7-7.7); Neutrophil % 58.7 % (47-70); Platelet Count 225 K/mm3 (150-450); RBC Distribution Width CV 12.6 % (11.6-14.6); RBC Distribution Width SD 41.7 fl (35.1-43.9); Red Blood Count 5.29 M/mm3 (4.6-6.2); White Blood Count 3.9 K/mm3 (4.4-11.0)
[2021-04-02 13:02] LABS: ALB/GLOB Ratio 1.2 RATIO (0.9-2.4); AST(SGOT) 39 U/L (15-37); Alanine Aminotransfer ALT/SGPT 54 U/L (16-61); Albumin, Serum 4.2 g/dL (3.2-5.0); Alkaline Phosphatase 50 U/L (45-117); Anion Gap 6 (5-15); BUN 23 mg/dL (7-18); BUN/Creat Ratio 21.3 RATIO (10-20); Calcium,Total 9.5 mg/dL (8.5-10.1); Chloride 102 mmol/L (98-107); Cholesterol 180 mg/dL (200); Creatinine, Serum 1.08 mg/dL (0.70-1.30); EST Glomerular Filtration Rate 78 mL/min (>60); Est Glom Filt Rate - Afr Amer 95 mL/min (>60); Globulin 3.4 g/dL (2.2-4.2); Glucose 97 mg/dL (74-106); High Density Lipoprotein 57 mg/dL; Potassium 4.4 mmol/L (3.5-5.1); Protein, Total 7.6 g/dL (6.4-8.2); Sodium Level 137 mmol/L (136-145); T4 Free Direct 0.82 ng/dL (0.76-1.46); Thyroid Stim Hormone (TSH) 4.07 uIU/mL (0.358-3.74); Triglycerides 129 mg/dL; Very Low Density Lipoprotein 26 mg/dL (5-40)
== END ==
PROVIDERS: PCP Internal Medicine; Referring Provider Physician Assistant; Visit Provider Physician Assistant
DX: Z00.00 Encounter for general adult medical examination without abnormal findings (principal); E78.5 Hyperlipidemia, unspecified; K21.9 Gastro-esophageal reflux disease without esophagitis
CPT/HCPCS: 36415; 80053; 80061; 84439; 84443; 85025

== ENCOUNTER → 2022-05-18 | Outpatient (CLI) | payer OTHER, SELFPAY ==
[2022-05-18 14:03] LABS: Bacteria 0 SEEN /hpf (None Seen); Mucous, Urine 0 SEEN /hpf (<or=2+); Red Blood Cells-Urine 0 SEEN /hpf (0-5); Squamous Epithelial Cells - UA 0 SEEN /hpf (0-5); White Blood Cells 0 SEEN /hpf (0-5)
[2022-05-18 15:01] LABS: Absolute Lymphocyte Count 1.14 X10^3/uL (0.83-4.51); Absolute Neutrophil Count 3.4 X10^3/uL (2.0-7.7); Basophil# 0.04 X10^3/uL; Basophil% 0.8 % (0-1); Eosinophils% 1.9 % (0-5); Hematocrit 47.8 % (40-54); Hemoglobin 16.1 g/dL (13.0-16.5); Lymphocyte # 1.14 X10^3/ul (0.83-4.51); Mean Corp Hgb Conc 33.7 g/dL (32-36); Mean Corpuscular Hgb 30.6 pg (27.0-32.0); Mean Corpuscular Volume 90.9 fL (80-94); Mean Platelet Vol. 10.5 fl (6.2-12.0); Monocyte# 0.53 X10^3/uL; Monocyte% 10.2 % (0-10); NRBC Flagged by Analyzer 0 % (0-5); Neutrophil # 3.36 X10^3/uL (2.7-7.7); Neutrophil % 64.9 % (47-70); Platelet Count 215 K/mm3 (150-450); RBC Distribution Width CV 12.1 % (11.6-14.6); RBC Distribution Width SD 40.5 fl (35.1-43.9); Red Blood Count 5.26 M/mm3 (4.6-6.2); White Blood Count 5.2 K/mm3 (4.4-11.0)
[2022-05-18 15:02] LABS: Color, Urine Straw (Yellow); Glucose, Dipstick Normal (Normal); Ketone-Dipstick Negative (Negative); Leukocyte Esterase-Dipstick Negative /ul (Negative); Nitrite-Dipstick Negative (Negative); Occult Blood-Urine Negative /ul (Negative); Protein-Dipstick Negative (Negative); Specific Gravity, Urine 1.005 (1.002-1.030); Urine Bilirubin Dipstick Negative (Negative); Urine Clarity Clear (Clear); Urine Urobilinogen Normal (Normal); Urine pH 6.5 (5.0 - 8.0)
[2022-05-18 15:40] LABS: ALB/GLOB Ratio 1.3 RATIO (0.9-2.4); AST(SGOT) 18 U/L (15-37); Alanine Aminotransfer ALT/SGPT 41 U/L (16-61); Albumin, Serum 4.1 g/dL (3.2-5.0); Alkaline Phosphatase 45 U/L (45-117); Anion Gap 6 (5-15); BUN 14 mg/dL (7-18); BUN/Creat Ratio 13.2 RATIO (10-20); Calcium,Total 9.1 mg/dL (8.5-10.1); Chloride 102 mmol/L (98-107); Cholesterol 185 mg/dL (200); Creatinine, Serum 1.06 mg/dL (0.70-1.30); EST Glomerular Filtration Rate 80 mL/min (>60); Est Glom Filt Rate - Afr Amer 96 mL/min (>60); Globulin 3.2 g/dL (2.2-4.2); Glucose 102 mg/dL (74-106); High Density Lipoprotein 52 mg/dL; Potassium 4.4 mmol/L (3.5-5.1); Protein, Total 7.3 g/dL (6.4-8.2); Sodium Level 138 mmol/L (136-145); Thyroid Stim Hormone (TSH) 3.97 uIU/mL (0.358-3.74); Triglycerides 115 mg/dL; Very Low Density Lipoprotein 23 mg/dL (5-40)
== END | disposition home or self-care (01) ==
LOC: BIMLAB 14:02
PROVIDERS: PCP Internal Medicine; Referring Provider Physician Assistant; Visit Provider Physician Assistant
DX: M54.50 Low back pain, unspecified (principal); R10.9 Unspecified abdominal pain; E78.5 Hyperlipidemia, unspecified; R79.89 Other specified abnormal findings of blood chemistry
CPT/HCPCS: 36415; 80053; 80061; 81001; 84443; 85025; 87086

== ENCOUNTER → 2023-08-02 | Outpatient (CLI) | payer OTHER, SELFPAY ==
[2023-08-02 13:41] LABS: Bacteria 0 SEEN /hpf (None Seen); Mucous, Urine 0 SEEN /hpf (<or=2+); Red Blood Cells-Urine 0 SEEN /hpf (0-5); Squamous Epithelial Cells - UA 0 SEEN /hpf (0-5); White Blood Cells 0 SEEN /hpf (0-5)
[2023-08-02 15:23] LABS: Color, Urine Straw (Yellow); Glucose, Dipstick Normal (Normal); Ketone-Dipstick Negative (Negative); Leukocyte Esterase-Dipstick Negative /ul (Negative); Nitrite-Dipstick Negative (Negative); Occult Blood-Urine Negative /ul (Negative); Protein-Dipstick Negative (Negative); Specific Gravity, Urine 1.005 (1.002-1.030); Urine Bilirubin Dipstick Negative (Negative); Urine Clarity Clear (Clear); Urine Urobilinogen Normal (Normal); Urine pH 6.5 (5.0 - 8.0)
[2023-08-02 15:25] LABS: Absolute Neutrophil Count 2.4 X10^3/uL (2.0-7.7); Basophil# 0.07 X10^3/uL; Basophil% 1.6 % (0-1); Eosinophil# 0.12 X10^3/uL; Eosinophils% 2.7 % (0-5); Hemoglobin 16.5 g/dL (13.0-16.5); Lymphocyte % 31.1 % (19-41); Mean Corp Hgb Conc 33.7 g/dL (32-36); Mean Corpuscular Hgb 31.1 pg (27.0-32.0); Mean Corpuscular Volume 92.3 fL (80-94); Mean Platelet Vol. 10.5 fl (6.2-12.0); Monocyte# 0.47 X10^3/uL; Monocyte% 10.4 % (0-10); NRBC Flagged by Analyzer 0 % (0-5); Neutrophil # 2.44 X10^3/uL (2.7-7.7); Neutrophil % 54.2 % (47-70); Platelet Count 221 K/mm3 (150-450); RBC Distribution Width CV 11.9 % (11.6-14.6); RBC Distribution Width SD 41.1 fl (35.1-43.9); Red Blood Count 5.31 M/mm3 (4.6-6.2); White Blood Count 4.5 K/mm3 (4.4-11.0)
[2023-08-02 15:52] LABS: ALB/GLOB Ratio 1.3 RATIO (0.9-2.4); AST(SGOT) 18 U/L (15-37); Alanine Aminotransfer ALT/SGPT 35 U/L (16-61); Albumin, Serum 4.4 g/dL (3.2-5.0); Alkaline Phosphatase 44 U/L (45-117); Anion Gap 4 (5-15); BUN 20 mg/dL (7-18); BUN/Creat Ratio 19.2 RATIO (10-20); Calcium,Total 9.6 mg/dL (8.5-10.1); Chloride 103 mmol/L (98-107); Cholesterol 169 mg/dL (200); Creatinine, Serum 1.04 mg/dL (0.70-1.30); EST Glomerular Filtration Rate 81 mL/min (>60); Est Glom Filt Rate - Afr Amer 98 mL/min (>60); Globulin 3.3 g/dL (2.2-4.2); Glucose 107 mg/dL (74-106); High Density Lipoprotein 65 mg/dL; Potassium 4.5 mmol/L (3.5-5.1); Protein, Total 7.7 g/dL (6.4-8.2); Sodium Level 138 mmol/L (136-145); T4 Free Direct 0.81 ng/dL (0.76-1.46); Thyroid Stim Hormone (TSH) 3.34 uIU/mL (0.358-3.74); Triglycerides 45 mg/dL; Very Low Density Lipoprotein 9 mg/dL (5-40)
== END | disposition home or self-care (01) ==
LOC: BIMLAB 13:36
PROVIDERS: PCP Internal Medicine; Visit Provider Internal Medicine
DX: E78.5 Hyperlipidemia, unspecified (principal); R30.0 Dysuria; R79.89 Other specified abnormal findings of blood chemistry
CPT/HCPCS: 36415; 80053; 80061; 81001; 84439; 84443; 85025; 87086

== ENCOUNTER → 2023-08-17 | Outpatient (CLI) | payer OTHER, SELFPAY ==
[2023-08-17 16:28] LABS: PSA,Total- Diagnostic 0.48 ng/mL (0.0-4.0)
== END | disposition home or self-care (01) ==
LOC: LAB 15:36
PROVIDERS: PCP Internal Medicine; Referring Provider Urology; Visit Provider Urology
DX: Z12.5 Encounter for screening for malignant neoplasm of prostate (principal)
CPT/HCPCS: 36415; 84153

== ENCOUNTER → 2024-08-16 | Outpatient (CLI) | payer OTHER, SELFPAY ==
[2024-08-16 12:43] LABS: Absolute Lymphocyte Count 1.13 X10^3/uL (0.83-4.51); Absolute Neutrophil Count 2.1 X10^3/uL (2.0-7.7); Basophil# 0.06 X10^3/uL; Basophil% 1.5 % (0-1); Eosinophil# 0.18 X10^3/uL; Eosinophils% 4.5 % (0-5); Hematocrit 46.9 % (40-54); Hemoglobin 15.5 g/dL (13.0-16.5); Lymphocyte # 1.13 X10^3/ul (0.83-4.51); Lymphocyte % 28.5 % (19-41); Mean Corpuscular Hgb 30.5 pg (27.0-32.0); Mean Corpuscular Volume 92.1 fL (80-94); Mean Platelet Vol. 10.5 fl (6.2-12.0); Monocyte% 12.6 % (0-10); NRBC Flagged by Analyzer 0 % (0-5); Neutrophil # 2.08 X10^3/uL (2.7-7.7); Neutrophil % 52.6 % (47-70); Platelet Count 212 K/mm3 (150-450); RBC Distribution Width CV 12.6 % (11.6-14.6); RBC Distribution Width SD 42.7 fl (35.1-43.9); Red Blood Count 5.09 M/mm3 (4.6-6.2)
[2024-08-16 12:55] LABS: ALB/GLOB Ratio 1.3 RATIO (0.9-2.4); AST(SGOT) 31 U/L (15-37); Alanine Aminotransfer ALT/SGPT 72 U/L (16-61); Albumin, Serum 4.1 g/dL (3.2-5.0); Alkaline Phosphatase 52 U/L (45-117); Anion Gap 5 (5-15); BUN 23 mg/dL (7-18); BUN/Creat Ratio 19.8 RATIO (10-20); Calcium,Total 9.4 mg/dL (8.5-10.1); Chloride 104 mmol/L (98-107); Cholesterol 188 mg/dL (200); Creatinine, Serum 1.16 mg/dL (0.70-1.30); EST Glomerular Filtration Rate 71 mL/min (>60); Est Glom Filt Rate - Afr Amer 86 mL/min (>60); Globulin 3.2 g/dL (2.2-4.2); Glucose 112 mg/dL (74-106); High Density Lipoprotein 56 mg/dL; PSA,Total - Annual Screen 0.47 ng/mL (0.00-4.00); Potassium 4.6 mmol/L (3.5-5.1); Protein, Total 7.3 g/dL (6.4-8.2); Sodium Level 139 mmol/L (136-145); Triglycerides 71 mg/dL; Very Low Density Lipoprotein 14 mg/dL (5-40)
[2024-08-16 15:04] LABS: Hemoglobin A1c 5.6 % (3.8-5.6)
== END | disposition home or self-care (01) ==
LOC: BIMLAB 09:23
PROVIDERS: PCP Internal Medicine; Referring Provider Internal Medicine; Visit Provider Internal Medicine
DX: Z00.00 Encounter for general adult medical examination without abnormal findings (principal); R73.9 Hyperglycemia, unspecified
CPT/HCPCS: 36415; 80053; 80061; 83036; 84153; 85025; G0103

== ENCOUNTER 2024-11-22 11:25 | Day surgery (SDC) | payer OTHER, SELFPAY ==
[2024-11-22] VITALS (7 sets, daily range): BP systolic 97–142; BP diastolic 72–87; PULSE 64–71; RESP 16; TEMP 36.1–36.8; O2SAT 93–98; BMI 33.2
--- NOTE | 2024-11-22 12:12 | HP.PCM_ITS ---
HPI - General HPI Narrative DIANA JIMENEZ, is a 49 M who presents for screening colonoscopy. He has never had a colonoscopy in the past. He denies abdominal pain or blood in the stool. He denies family history of colon cancer. COUNT INCLUDES THE [facility] Medical History (Updated 11/21/24 @ 14:33 by Madison Rose) History of stress test Alcohol use High cholesterol Gastric reflux Non-smoker Blood glucose elevated Preventative health care Colon cancer screening Hypertension Abnormal thyroid screen (blood) Burning with urination Hyperlipemia GERD (gastroesophageal reflux disease) Home Medications ?Medication ?Instructions ?Recorded ?Last Taken ?Type omeprazole magnesium 20 mg 20 mg PO DAILY 11/02/18 11/02/18 History tablet,delayed release rosuvastatin 10 mg tablet 10 mg PO DAILY #90 tabs 08/16/24 Unknown Rx Allergy/AdvReac Type Severity Reaction Status Date / Time shiitake mushroom Allergy Mild rash Verified 11/22/24 11:39 Family History Father Cancer stomach Surgical History (Updated 11/21/24 @ 14:32 by Madison Rose) Hx of tonsillectomy History of carpal tunnel release History of elbow surgery History of repair of ACL Social History (Updated 10/16/24 @ 08:29 by Laura Mccall) household members: spouse current occupational status: employed Smoking Status: Never smoker alcohol intake: current alcohol intake frequency: a few times a month Alcohol type: wine substance use type: does not use what type of physical activity do you participate in: walking frequency: 3-4 times per week Past Medical/Surgical History Planned Operation Planned Operative Procedure(s): CSCOPE OA Previous Hospitalizations/Surgeries HX Hospitalizations: No Any Problems With Anesthesia: Yes (N,V) You/Your Family Experience Fever (Hyperthermia) With Anes: No Cholinesterase deficiency: No Cardiovascular Hx Chest Pain within Last 2 months: No Hx of Irregular Heartbeat and/or Afib: No Hx Heart Attack: No Hx Hypertension: No Hx Cardiac Surgery/Stents/Etc.: No Hx Pain in Legs when Walking/Leg Cramps: No Respiratory Hx Chronic Obstructive Pulmonary Disease (COPD): No Hx Emphysema: No Hx Sleep Apnea: No CPAP: No Hx Respiratory Tract Infection/Cold (presently): No Do You Snore Loudly (louder than talking or can be heard): No Do You Often Feel Tired/ Fatigued/ Sleepy Dring Daytime?: No Has Anyone Observed You Stop Breathing During Sleep?: No Result (for STOP score): Negative Hx Smoking: No Smoking Status: Never smoker Gastrointestinal Hx Gastrointestinal Bleed: No Hx Ulcer: No Hx Unplanned Weight Loss of 20#: No Neurological Hx Seizures: No Hx Multiple Sclerosis: No Hx Parkinson's Disease: No Does patient have nerve stimulator: No Blood Disorder Hx High Cholesterol: Yes Hx Hepatitis: No Hx Cirrhosis: No Hx Anemia: No Hx Blood Disorders: No Reproduction : No Genitourinary Hx Renal Disease: No Hx Dialysis: No Musculoskeletal Hx Arthritis: No Hx Rheumatoid Arthritis: No Endocrine Hx Diabetes: No Thyroid Disease: No Psycho/Social Hx Substance Use: No Hx Alcohol Use: No Hx Anxiety: No Hx Depression: No Hx Dementia: No Miscellaneous Hx Cancer: No Recent Exposure to Contagious Disease: No Allergies shiitake mushroom Allergy (Mild, Verified 11/22/24 11:39) rash Maternal: Family History Father Cancer Hypertension and - (No family history of premature CAD.) Paternal: Family History Father Cancer No pertinent history Discharge Is Pt Admitted From a Penitentiary, or a Custodial: No After D/C, Where Do you Plan to Go: Return Home Vital Signs Vital Signs Vital Signs: 11/22/24 11:44 11/22/24 11:44 Temperature 98.3 F Temperature Source Temporal Pulse Rate 71 Respiratory Rate 16 Respiratory Pattern Normal Blood Pressure 142/87 H Blood Pressure Mean 105 Blood Pressure Source Monitor Blood Pressure Position Sitting Blood Pressure Location Right Arm Pulse Ox 98 Oxygen Delivery Method Room Air Weight Weight: 224 lb 13.944 oz Body Mass Index (BMI) 33.2 Physical Exam Const alert and oriented x3 HEENT normocephalic Eyes PERRL Resp normal respiratory effort and normal air movement Cardio regular rate and regular rhythm GI soft to palpation, non-tender and non-distended Extremity normal to inspection Assessment & Plan Assessment/Plan (1) Colon cancer screening: PLAN: I explained endoscopy in detail to the patient. I explained the risks including but not limited to stroke or heart attack with anesthesia, perforation of the GI tract, bleeding, infection. I explained that any of these could necessitate further emergency surgery. The patient understands and all questions were answered sufficiently. The patient wishes to proceed with procedure. Fernando Martinez MD Pager: [facility] [address] [place] [address] [address] [place] [address] Office: Surgery Risks - Colonoscopy Risks Include but are not Limited To: Risks include but are not limited to: Bleeding, perforation requiring further surgery, inability to complete colonoscopy requiring barium enema.
--- NOTE | 2024-11-22 12:21 | PCM.PRE.AN2 ---
ASA Classification* ASA Classification ASA Classification: 2 Assessment & Plan Anesthesia* Anesthesia Assessment Anesthesia Assessment: Discussed sedation and/or anesthesia options, risks, benefits, and alternatives with patient/parents/legal guardian/POA. Questions invited. The patient/parents/legal guardian/POA seems to understand and agrees to proceed with anesthesia plan. Reviewed the physical assessment, medical history, allergy history and patient home medications list prior to surgery/procedure/anesthetic and documented any changes. Performed airway and anesthesia risk assessments. Anesthesia Type Anesthesia Type: MAC Anesthesia Focused Assessment* Temperature: 98.3 F Pulse Rate: 71 Blood Pressure: 142/87 Respiratory Rate: 16 Pulse Ox: 98 Airway Assessment Mouth opens: >3 cm Mallampati Score: II Focused Labs Anesthesia Preop lab: CBC WBC 4.0 K/mm3 (4.4-11.0) L 08/16/24 09:24 RBC 5.09 M/mm3 (4.6-6.2) 08/16/24 09:24 Hgb 15.5 g/dL (13.0-16.5) 08/16/24 09:24 Hct 46.9 % (40-54) 08/16/24 09:24 Plt Count 212 K/mm3 (150-450) 08/16/24 09:24 CHEMISTRY Potassium 4.6 mmol/L (3.5-5.1) 08/16/24 09:24 Sodium 139 mmol/L (136-145) 08/16/24 09:24 BUN 23 mg/dL (7-18) H 08/16/24 09:24 Creatinine 1.16 mg/dL (0.70-1.30) 08/16/24 09:24 Glucose 112 mg/dL (74-106) H 08/16/24 09:24 TSH 3.34 uIU/mL (0.358-3.74) 08/02/23 13:38 COAG PT 13.5 SECONDS (11.7-14.9) 11/03/18 04:56 Pre-Assessment Diagnosis/Proposed Procedure Planned Operative Procedure(s): CSCOPE OA Anesthesia History 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 When Was Last Pacemaker Check QUESTION #4 FULL TEXT: You/Your Family Experience fever (hyperthermia) with Anesthesia Last Oral Intake Last Oral intake: Last Oral Intake NPO since 08:30 11/22/24 11:44 Meds taken in AM with sips of Yes 11/22/24 11:44 water? Meds patient instructed to prilosec 11/22/24 11:44 take am of surgery PONV PONV - aircraft maintenance engineer: PONV - aircraft maintenance engineer Female No 11/21/24 14:26 HX of Motion Sickness No 11/21/24 14:26 HX of N/V After Surgery Yes 11/21/24 14:26 Non-Smoker Yes 11/21/24 14:26 Duration of Surgery greater No 11/21/24 14:26 than 60 minutes Number of Risk Factors 2 11/21/24 14:26 PONV Score Moderate Risk 11/21/24 14:26 Height & Weight Height & Weight: Anesthesia: Height & Weight Height 5 ft 9 in 11/22/24 11:44 Weight: 102 kg 11/22/24 11:44 Body Mass Index (BMI) 33.2 11/22/24 11:44 Respiratory Assessment Respiratory Assessment - aircraft maintenance engineer: Respiratory Tract Infection Hx - aircraft maintenance engineer Hx Respiratory Tract Infection No 11/22/24 12:13 STOP Sleep Apnea STOP Sleep Apnea - aircraft maintenance engineer: STOP Sleep Apnea - aircraft maintenance engineer Hx Hypertension No 11/22/24 12:13 Hx Sleep Apnea No 11/22/24 12:13 CPAP No 11/22/24 12:13 BIPAP Do you snore loudly (louder No 11/22/24 12:13 than talking or can be heard Do you often feel tired/ No 11/22/24 12:13 fatigued/ sleepy during daytime? Has anyone observed you stop No 11/22/24 12:13 breathing during sleep? STOP Results Negative 01/15/25 12:13 QUESTION #5 FULL TEXT : Do you snore loudly (louder than talking or can be heard through closed doors)? 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 Specify any problems Hx of Preganancy in last 3 N/A 11/21/24 14:26 Months Nurse Filling Out Transfusion DSCHRIBER 11/21/24 14:26 & Questions: Date: 11/21/24 11/21/24 14:26 Time: 14:28 11/21/24 14:26 Patient unable to answer at this time (ie. confused, unrespo /Reproduction History /Reproductive History - aircraft maintenance engineer: /Reproductive Hx- aircraft maintenance engineer Hx Now No 11/22/24 12:13 Gestational Age (in weeks): EDC: Hx Hx Para Hx Section SAB No 11/21/24 14:26 [facility] History History of stress test Alcohol use High cholesterol Gastric reflux Non-smoker Blood glucose elevated Preventative health care Colon cancer screening Hypertension Abnormal thyroid screen (blood) Burning with urination Hyperlipemia GERD (gastroesophageal reflux disease) Home Medications ?Medication ?Instructions ?Recorded ?Last Taken ?Type omeprazole magnesium 20 mg 20 mg PO DAILY 11/02/18 11/02/18 History tablet,delayed release rosuvastatin 10 mg tablet 10 mg PO DAILY #90 tabs 08/16/24 Unknown Rx Allergy/AdvReac Type Severity Reaction Status Date / Time shiitake mushroom Allergy Mild rash Verified 11/22/24 11:39 Family History Father Cancer stomach Surgical History Hx of tonsillectomy History of carpal tunnel release History of elbow surgery History of repair of ACL Social History household members: spouse current occupational status: employed Smoking Status: Never smoker alcohol intake: current alcohol intake frequency: a few times a month Alcohol type: wine substance use type: does not use what type of physical activity do you participate in: walking frequency: 3-4 times per week Review of Systems (Anesthesia) ROS Narrative System reviewed and no additional complaints, except as documented.
--- NOTE | 2024-11-22 12:47 | OP.COLON_ITS ---
Patient Name: Sea Jaime Procedure Date: 11/22/2024 12:18 PM Date of : 1975 Age: 49 Procedure: Colonoscopy Indications: Screening for colorectal malignant neoplasm Providers: Fernando Martinez MD Referring MD: Fernando Martinez MD Medicines: Propofol per Anesthesia Patient Profile: This is a 49 year old male. Refer to note in patient chart for documentation of history and physical. Last Colonoscopy: none. The patient's first colonoscopy is today. Complications: No immediate complications. Procedure: Pre-Anesthesia Assessment: - Prior to the procedure, a History and Physical was performed, and patient medications and allergies were reviewed. The patient's tolerance of previous anesthesia was also reviewed. The risks and benefits of the procedure and the sedation options and risks were discussed with the patient. All questions were answered, and informed consent was obtained. Prior Anticoagulants: The patient has taken no anticoagulant or antiplatelet agents. After reviewing the risks and benefits, the patient was deemed in satisfactory condition to undergo the procedure. After I obtained informed consent, the scope was passed under direct vision. Throughout the procedure, the patient's blood pressure, pulse, and oxygen saturations were monitored continuously. The colonoscope was introduced through the anus and advanced to the cecum, identified by appendiceal orifice and ileocecal valve. The colonoscopy was performed without difficulty. The patient tolerated the procedure well. The quality of the bowel preparation was good. The ileocecal valve, appendiceal orifice, and rectum were photographed. Scope In: 12:34:50 PM Scope Withdrawal Time 0 hours 6 minutes 9 seconds Scope Out: 12:45:06 PM Total Procedure Duration Time 0 hours 10 minutes 16 seconds Findings: The entire examined colon appeared normal on direct and retroflexion views. Impression: - The entire examined colon is normal on direct and retroflexion views. - No specimens collected. Recommendation: - Discharge patient to home. - Resume previous diet. - Continue present medications. - Repeat colonoscopy in 10 years for screening purposes. Procedure Code(s): --- Professional --- 92833, Colonoscopy, flexible; diagnostic, including collection of specimen(s) by brushing or washing, when performed (separate procedure) Diagnosis Code(s): --- Professional --- Z12.11, Encounter for screening for malignant neoplasm of colon CPT copyright 2021 [employer]. All rights reserved. The codes documented in this report are preliminary and upon home appliance installer review may be revised to meet current compliance requirements. Fernando Martinez MD 11/22/2024 12:47:25 PM This report has been signed electronically. Number of Addenda: 0 Note Initiated On: 11/22/2024 12:18 PM
--- NOTE | 2024-11-22 12:48 | OP.CCLET_ITS ---
11/22/2024 Jonathan Louise MD [address] [place] [address] [place] [address] Re : Colonoscopy procedure for Sea Yeni Dear Dr. Louise This procedure was performed on Friday, November 22, 2024. My impressions and recommendations are as follows: Impressions : - The entire examined colon is normal on direct and retroflexion views. - No specimens collected. Recommendations : - Discharge patient to home. - Resume previous diet. - Continue present medications. - Repeat colonoscopy in 10 years for screening purposes. My findings are described in the full procedure note, which is enclosed. If I can be of further assistance, please feel free to contact me at Doctor phone number(s): , Work: . Sincerely, Fernando Martinez MD 11/22/2024 12:47:25 PM This report has been signed electronically.
--- NOTE | 2024-11-22 12:52 | PCM.POST.ANE ---
Anesthesia: Postop Eval I Current Vital Signs Temperature: 98 F Pulse Rate: 65 Blood Pressure: 115/72 Respiratory Rate: 16 Pulse Ox: 95 Assessment Airway patent: Yes Spontaneous unlabored respirations: Yes nausea: No Vomiting: No Anesthesia Complication: No Fluid Hydration Crystalloid volume administer (ml): 30 Total IV fluid infused: 30 Progress Note Anesthesia document: Postop Eval 1 completed: Yes
--- NOTE | 2024-11-22 13:03 | POSTOPAN2_ITS ---
Anesthesia Postop Eval I Sum Postop Eval Completion status Anesthesia document: Postop Eval 1 completed: Yes Anesthesia Postop Eval I Summary Anesthesia Postop Eval I Summary: Anesthesia Postop Eval I: Assessment Summary Airway patent Yes 11/22/24 12:52 [email or web address] Spontaneous unlabored Yes 11/22/24 12:52 MANAGER [email or web address] respirations Mental status nausea No 11/22/24 12:52 MANAGER [email or web address] Vomiting No 11/22/24 12:52 [email or web address] Anesthesia Postop Eval I: Fluid Summary Crystalloid volume administer 30 11/22/24 12:52 MANAGER [email or web address] (ml) Colloids volume administered ( ml) Blood Product volume administered (ml) Total IV fluid infused 30 11/22/24 12:52 [email or web address] Anesthesia Postop Eval I: Summary Notes Anesthesia Complication No 11/22/24 12:52 [email or web address] Anesthesia Complication Comment: Post-operative progress note Anesthesia: Postop Eval II Evaluation Mental status: Awake Pain Level: 2 nausea: No Vomiting: No
--- NOTE | 2024-11-22 13:03 | PCM.POSTANE2 ---
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.[email or web address] Spontaneous unlabored Yes 11/22/24 12:52 CHALK EXTRUDING MACHINE OPERATOR.TNES respirations Mental status nausea No 11/22/24 12:52 CHALK EXTRUDING MACHINE OPERATOR.TNES Vomiting No 11/22/24 12:52 CHALK EXTRUDING MACHINE OPERATOR.TNES Anesthesia Postop Eval I: Fluid Summary Crystalloid volume administer 30 11/22/24 12:52 CHALK EXTRUDING MACHINE OPERATOR.TNES (ml) Colloids volume administered ( ml) Blood Product volume administered (ml) Total IV fluid infused 30 11/22/24 12:52 CHALK EXTRUDING MACHINE OPERATOR.TNES Anesthesia Postop Eval I: Summary Notes Anesthesia Complication No 11/22/24 12:52 CHALK EXTRUDING MACHINE OPERATOR.TNES Anesthesia Complication Comment: Post-operative progress note Anesthesia: Postop Eval II Evaluation Mental status: Awake Pain Level: 2 nausea: No Vomiting: No
== END 2024-11-22 13:17 | disposition home or self-care (01) ==
LOC: EN 11:26 → AC 11:28
PROVIDERS: PCP Internal Medicine; Referring Provider Surgery; Visit Provider Surgery
PROC: 0DJD8ZZ Inspection of Lower Intestinal Tract, Via Natural or Artificial Opening Endoscopic (ICD-10-PCS; CPT 45378; principal; 2024-11-22 12:25)
DX: Z12.11 Encounter for screening for malignant neoplasm of colon (principal); K21.9 Gastro-esophageal reflux disease without esophagitis; I10 Essential (primary) hypertension; E78.00 Pure hypercholesterolemia, unspecified
CPT/HCPCS: 45378; A4216